=== PATIENT | male | born 1995 | race Caucasian/White ===

== ENCOUNTER 2016-07-31 12:08 | Emergency (ER) | payer BC ==
[2016-07-31 15:21] VITALS: BP 121/64
--- NOTE | 2016-07-31 16:06 | RAD ---
Indication: Foot injury. 3 views of the foot demonstrates no fracture. No other bone or joint abnormality is noted. IMPRESSION: No fracture of the foot is present.
--- NOTE | 2016-07-31 16:33 | UC ---
Lower Extremity/Ankle HPI - HPI Summary HPI Summary: THREE DAYS AGO WAS AUDITIONING FOR DANCE, FELL AND INJURED LEFT (LATERAL ) FOOT. NO PREVIOUS INJURY. NO ANKLE OR LEG PAIN. NO OTHER INJURIES. PAIN WITH WEIGHT BEARING. - History of Current Complaint Chief Complaint: UCLowerExtremity Stated Complaint: LEFT FOOT INJURY Time Seen by Provider: 07/31/16 15:14 Hx Obtained From: Patient Onset/Duration: Sudden Onset, Lasting Days, Still Present Severity Initially: Moderate Severity Currently: Moderate Aggravating Factor(s): Standing, Ambulation Alleviating Factor(s): Rest, Elevation, Ice Able to Bear Weight: Yes - Risk Factors Gout Risk Factors: Negative DVT Risk Factors: Negative Septic Arthritis Risk Factor: Negative - Allergies/Home Medications Allergies/Adverse Reactions: Allergies Allergy/AdvReac Type Severity Reaction Status Date / Time No Known Allergies Allergy Verified 07/31/16 15:21 Home Medications: Home Medications Ibuprofen TAB* [Advil TAB*] 200 mg PO Q6H PRN 07/31/16 [History Confirmed ] PMH/Surg Hx/FS Hx/Imm Hx Previously Healthy: Yes - Surgical History Surgical History: None - Family History Known Family History: Positive: Other - positive FMH for URI; NO HISTORY OF JOINT LAXITY OR CONNECTIVE TISSUE Negative: Blood Disorder - Social History Occupation: Student Lives: Alone Alcohol Use: Occasionally Substance Use Type: None Smoking Status (MU): Never Smoked Tobacco Review of Systems Constitutional: Negative Skin: Negative Eyes: Negative ENT: Negative Respiratory: Negative Cardiovascular: Negative Gastrointestinal: Negative Genitourinary: Negative Motor: Negative Neurovascular: Negative Musculoskeletal: Arthralgia, Myalgia Neurological: Negative Psychological: Negative All Other Systems Reviewed And Are Negative: Yes Physical Exam Triage Information Reviewed: Yes Appearance: Well-Appearing, No Pain Distress, Well-Nourished Vital Signs: Initial Vital Signs Temp 98.2 F 07/31/16 15:15 Pulse 74 07/31/16 15:15 Resp 16 07/31/16 15:15 BP 121/64 07/31/16 15:15 Pulse Ox 100 07/31/16 15:15 Vital Signs Reviewed: Yes Eye Exam: Normal Eyes: Positive: Conjunctiva Clear ENT Exam: Normal ENT: Positive: Normal ENT inspection, Hearing grossly normal, TMs normal Dental Exam: Normal Neck exam: Normal Neck: Positive: Supple, Nontender, No Lymphadenopathy Respiratory Exam: Normal Respiratory: Positive: Chest non-tender, Lungs clear, Normal breath sounds, No respiratory distress, No accessory muscle use Cardiovascular Exam: Normal Cardiovascular: Positive: RRR, No Murmur, Pulses Normal, Brisk Capillary Refill Abdominal Exam: Normal Abdomen Description: Positive: Nontender, No Organomegaly Musculoskeletal: Positive: Strength Intact, ROM Intact, No Edema Neurological Exam: Normal Psychological Exam: Normal Psychological: Positive: Normal Response To Family Skin Exam: Normal Lower Extremity Course/Dx - Differential Dx/Diagnosis Differential Diagnosis/HQI/PQRI: Fracture (Closed), Sprain, Strain Provider Diagnoses: LEFT FOOT SPRAIN Discharge - Discharge Plan Condition: Stable Disposition: HOME Patient Education Materials: Foot Contusion (ED), Foot Sprain (ED) Forms: *Physical Education Release Referrals: [facility] [Outside] Non Staff,Doctor [Primary Care Provider] - Additional Instructions: PHYSICAL THERAPY REFERRAL: You have been prescribed physical therapy. Treatments may include stretching, exercise, application of heat or cold, and other modalities. After an injury, PT can reduce swelling and pain. In recovery, PT is used to restore mobility and strength. Your specific treatment goals are: ___X__ Reduction of Swelling (EGS, US, ice as needed) ___X__ Pain Reduction (EGS, US, ice as needed) TENS Pack Fitting and Instruction Wound Hydrotherapy ___X__ Preservation of Mobility ___X__ Methodist of Mobility ___X__ Strength Methodist ___X__ Work or Sports Hardening This instruction sheet also serves as your PHYSICAL THERAPY REFERRAL! Please take it with you to the therapist, so he/she will be aware of your diagnosis and treatment plan. You may see the physical therapist of your choice for these treatments, but may wish to check with your insurance to be sure the provider you select is covered. It's important to see the doctor to whom you have been referred for follow up.
== END 2016-07-31 16:38 | disposition home or self-care (01) ==
LOC: UCCORT 12:08
DX: S93.602A Unspecified sprain of left foot, initial encounter (principal); W19.XXXA Unspecified fall, initial encounter; Y93.41 Activity, dancing; Y92.9 Unspecified place or not applicable
CPT/HCPCS: 99213; G0463

== ENCOUNTER 2017-02-28 16:22 | Emergency (ER) | payer BC ==
[2017-02-28 16:31] VITALS: BP 121/71
--- NOTE | 2017-02-28 17:03 | UC ---
GI Bleed HPI - HPI Summary HPI Summary: 21 yo male with one week hx of perianal itching/rectal pain (constant but worse with sitting/BMs) and bright red blood on tissue after wiping for the past 4 days has had 3-5 episodes of diarrhea per day no f/c no n/v no BRB in toilet bowl no weakness or near syncope no abd pain Had (-) HIV test about one month ago - History Of Current Complaint Chief Complaint: UCGI Stated Complaint: PERSONAL Time Seen by Provider: 02/28/17 16:30 Hx Obtained From: Patient Onset/Duration: Gradual Onset, Lasting Days Timing: Constant Severity Initially: Moderate Severity Currently: Moderate Pain Intensity: 4 - worse with BMs or sitting Pain Scale Used: 0-10 Numeric Associated Pain: Discrete @ - rectal Character: Burning Aggravating Factor(s): Bowel Movement Associated Signs And Symptoms: Positive: Rectal Pain. Negative: Back Pain, Pallor, Dizziness, Weakness, Syncope, Constipation, Nausea, Bruising, Weight Loss, Recent Abnormal Coagulation Studies - Allergies/Home medications Allergies/Adverse Reactions: Allergies Allergy/AdvReac Type Severity Reaction Status Date / Time No Known Allergies Allergy Verified 02/28/17 16:31 PMH/Surg Hx/FS Hx/Imm Hx Previously Healthy: Yes - Surgical History Surgical History: None - Family History Known Family History: Positive: Other - No hx Crohns or UC Negative: Cardiac Disease, Hypertension, Diabetes, Blood Disorder - Social History Alcohol Use: Occasionally Substance Use Type: None Smoking Status (MU): Never Smoked Tobacco Review of Systems Constitutional: Negative Skin: Negative Eyes: Negative ENT: Negative Respiratory: Negative Cardiovascular: Negative Gastrointestinal: Nausea Genitourinary: Negative Motor: Negative Neurovascular: Negative Musculoskeletal: Negative Neurological: Negative Psychological: Negative All Other Systems Reviewed And Are Negative: Yes Physical Exam Triage Information Reviewed: Yes Appearance: Well-Appearing, No Pain Distress, Well-Nourished Vital Signs: Initial Vital Signs Temp 98.2 F 02/28/17 16:26 Pulse 77 02/28/17 16:26 Resp 16 02/28/17 16:26 BP 121/71 02/28/17 16:26 Pulse Ox 98 02/28/17 16:26 Vital Signs Reviewed: Yes Eyes: Positive: Conjunctiva Clear ENT: Positive: Hearing grossly normal. Negative: Nasal congestion, Nasal drainage, Trismus, Muffled/hoarse voice Neck: Positive: Supple, Nontender, No Lymphadenopathy Respiratory: Positive: Lungs clear, Normal breath sounds, No respiratory distress, No accessory muscle use Cardiovascular: Positive: RRR, No Murmur Abdomen Description: Positive: Other: - no hemorrhoids or fissure noted/no perirectal mass. Negative: Nontender - mild LLQ pain with deep palpation Bowel Sounds: Positive: Present Musculoskeletal: Positive: ROM Intact, No Edema Neurological: Positive: Alert Psychological Exam: Normal Skin Exam: Normal Bleed Course/Dx - Course Course Of Treatment: advise of need for gi referral - Differential Dx/Diagnosis Provider Diagnoses: rectal pain and bleeding. diarrhea Discharge - Discharge Plan Condition: Stable Disposition: HOME Prescriptions: Hydrocortisone SUPP* [Anusol HC Supp*] 25 mg [place] BID #14 supp Patient Education Materials: Rectal Bleeding (ED), Acute Diarrhea (ED) Referrals: Desmond Locke MD [Medical Doctor] - Additional Instructions: I am unsure of the cause of your rectal pain/bleeding and diarrhea Bring in stools for studies I suggest you follow with a gi specialist (underwriting service representative) IF YOUR SYMPTOMS WORSEN- GO TO THE EMERGENCY ROOM INCREASED PAIN WORSENING DIARRHEA FEVER INCREASED BLEEDING IF YOU ARE NOT ABLE TO MAKE AN APPT IN A TIMELY FASHION LET US KNOW tucks medicated pads for itching (otc)
--- NOTE | 2017-03-02 09:55 | ED ---
Progress - Progress Note Progress Note: CALL PATIENT C.DIFF (-), GIARDIA/CRYPTO/STOOL CX PENDING. IF WORSE ER. Course/Dx - Course Course Of Treatment: advise of need for gi referral - Diagnoses Provider Diagnoses: Diarrhea
--- NOTE | 2017-03-04 07:05 | UC ---
Progress - Progress Note Progress Note: CALL PATIENT C.DIFF (-), GIARDIA/CRYPTO/STOOL CX PENDING. IF WORSE ER. 03/04/17 YEAST IN STOOL. F/U PCP OR GI.
== END 2017-02-28 17:08 | disposition home or self-care (01) ==
LOC: UCCORT 16:22
DX: K62.89 Other specified diseases of anus and rectum (principal); K62.5 Hemorrhage of anus and rectum; R19.7 Diarrhea, unspecified
CPT/HCPCS: 87045; 87046; 87077; 87328; 87329; 87493; 87899; 99212; G0463